=== PATIENT | female | born 1980 | race Caucasian/White ===

== ENCOUNTER 2018-04-22 04:50 | Emergency (ER) | payer MEDICARE ==
[~2018-04-22] VITALS: Ht 162.6 cm; Wt 77.1 kg
== END 2018-04-22 05:29 | disposition left against medical advice (07) ==
LOC: ER 04:50
DX: S61.304A Unspecified open wound of right ring finger with damage to nail, initial encounter (principal)

== ENCOUNTER → 2021-02-28 | Outpatient (CLI) | payer MEDICARE | LOC: RAD 09:13 | PROVIDERS: ATTEND Family Medicine | DX: M79.601 Pain in right arm (principal) | CPT/HCPCS: 93971 ==